=== PATIENT | female | born 1985 | race Asian ===

== ENCOUNTER 2018-07-29 08:43 | Inpatient (IN) | payer BC ==
[~2018-07-29] VITALS: Ht 152.4 cm; Wt 50.9 kg
[2018-07-29 08:58] VITALS: Ht 152.4 cm; Wt 50.9 kg
--- NOTE | 2018-07-29 09:08 | TRIAGE ---
OB Triage Datetime Report Generated by CPN: 07/29/2018 09:08 Datetime: 07/29/2018 08:56 Vaginal Exam Dilatation (cms): 3.0 Effacement (%): 100 Station: -1 Exam By: EMILEE AVINA Vaginal Bleeding: Normal Show Cervix, Consistency: Soft Cervix, Position: Midposition Presentation 'A': Cephalic Datetime: 07/29/2018 08:50 Assessment Type: Triage Maternal Assessment Level of Consciousness: Fully Conscious DTR's/Clonus: DTRs 2+; No Clonus Headache: Denies Blurred Vision: No Respiratory Effort: Unlabored; Regular Rhythm; Equal Expansion Breath Sounds, Left: Clear and Equal Breath Sounds, Right: Clear and Equal Nausea/Vomiting: Denies RUQ Epigastric Pain: Denies Lower Extremities Edema: None Degree: None Upper Extremities Edema: None Degree: None Facial Edema: None Fall Risk Assessment History of Falling: (0) No Secondary Diagnosis: (0) No Ambulatory Aid: (0) Bedrest/Nurse Assist IV Therapy: (0) No Gait: (0) Normal/Bedrest/Immobile Mental Status: (0) Oriented to Own Ability Fall Score: 0 Fall Risk Score Definition: No Risk: No action required Datetime: 07/29/2018 08:46 EGA: 37.5 Datetime: 07/29/2018 08:38 Time of Arrival: 07/29/2018 08:38 Arrived By: Ambulatory Arrived From: Home Chief Complaint: R/O LABOR Movement: Present Contractions: Regular Rupture of Membranes: Denies Vaginal Bleeding: Normal Show Vaginal Discharge: Denies Recent Sexual Intercouse: Denies Abdominal Trauma: Not Applicable Patient Complaints: Contractions Additional Patient Complaints: NONE Time Provider Notified: 07/29/2018 09:00 Provider Notified: NAVEEN Initial Plan: MONITOR AND VE
[2018-07-29] MEDS ORDERED: CARBOPROST 250 MCG INJ IM PRN ×2 (09:30→14:30)
[2018-07-29] MEDS ORDERED: OXYTOCIN 30 UNITS/LR 500 ML IV PRN ×2 (09:30→14:30)
[2018-07-29] MEDS ORDERED: OXYTOCIN 30 UNITS/LR 500 ML IV SCH ×2 (09:30)
[2018-07-29] MEDS ORDERED: MISOPROSTOL 200 MCG TAB PR PRN ×2 (09:30→14:30)
[2018-07-29] MEDS ORDERED: LIDOCAINE 1% (MPF) 30 ML INJ INJ PRN (09:30)
[2018-07-29] MEDS ORDERED: BUTORPHANOL 2 MG INJ IV PRN (09:30)
[2018-07-29] MEDS ORDERED: METHYLERGONOVINE 0.2 MG INJ IM PRN ×2 (09:30→14:30)
[2018-07-29] MEDS ORDERED: AMPICILLIN 2 GM/NS (PMX) 100 ML IVPB ONE (10:00)
[2018-07-29] MEDS: LACTATED RINGER'S 1,000 ML IV SCH ×2 (10:45→13:03)
--- NOTE | 2018-07-29 12:56 | PREAC ---
Date/Time of Note Date/Time of Note DATE: 07/29/18 TIME: 12:55 Anesthesia Eval and Record Evaluation Time Pre-Procedure Interview DATE: 07/29/18 TIME: 12:55 Age 33 Sex female NPO: 8 hrs Preoperative diagnosis intrauterine Planned procedure labor epidural Past Medical History Past Medical History: Includes : : (2), Para: (1), Gestational age: (37.5) Surgery & Anesthesia Issues No known issue Meds Anticoagulation: No Beta Janel within 24 hr: No Reason Beta Janel not given: Pt. not on B-Janel Current Medications Lactated Ringer's 1,000 ml @ 125 mls/hr Q8H IV Last administered on 07/29/18at 10:45; Admin Dose 125 MLS/HR; Start 07/29/18 at 09:09 Butorphanol Tartrate (Stadol) 2 mg Q2H PRN IV .PAIN; Start 07/29/18 at 09:30 Lidocaine (Xylocaine 1% (Mpf)) 30 ml ONCE PRN INJ .EPISIOTOMY; Start 07/29/18 at 09:30 Oxytocin/Lactated Ringer's 500 ml @ 500 mls/hr ONCE POST IV ; Start 07/29/18 at 09:30 Oxytocin/Lactated Ringer's 500 ml @ 125 mls/hr POST IV ; Start 07/29/18 at 09:30 Oxytocin/Lactated Ringer's 500 ml @ 0 mls/hr ONCE PRN IV .VAGINAL BLEEDING; Start 07/29/18 at 09:30 Methylergonovine Maleate (Methergine) 0.2 mg ONCE PRN IM .VAGINAL BLEEDING; Start 07/29/18 at 09:30 Carboprost Tromethamine (Hemabate) 250 mcg ONCE PRN IM .VAGINAL BLEEDING; Start 07/29/18 at 09:30 Misoprostol (Cytotec) 1,000 mcg ONCE PRN RI .VAGINAL BLEEDING; Start 07/29/18 at 09:30 Ampicillin 50 ml @ 100 mls/hr Q4 IVPB ; Start 07/29/18 at 13:00 Meds reviewed: Yes Allergies Coded Allergies: ciprofloxacin (Verified Allergy, Unknown, 07/29/18) rash Uncoded Allergies: all (Allergy, Unknown, 07/29/18) cipro Allergies Reviewed: Yes Labs/Studies Labs Reviewed: Reviewed by anesthesiologist Result Diagram: 4/29/19 0900 Laboratory Tests 07/29/18 09:00 Blood Bank Test 07/29/18 09:42 Antibody Screen NEGATIVE Blood Type O POSITIVE Rh Immune Globulin Candidate NO test: N/A Pre-procedure Exam Airway: Adequate mouth opening, Adequate thyromental dist Mallampati: Mallampati II Teeth: Normal Lung: Normal Heart: Normal ASA Physical Status ASA physical status: 2 Emergency: None Planned Anesthetic Neuraxial: Epidural Planned Pain Management Epidural, Parenteral pain med Pre-operative Attestations Prior to commencing anesthesia and surgery, the patient was re-evaluated, there was verification of: *The patient's identity *The results of appropriate recent lab work and preoperative vital signs *The above evaluation not changing prior to induction *Anesthetic plan, risk benefits, alternative and complications discussed with patient/family; questions answered; patient/family understands, accepts and wishes to proceed. ARELY REICH MD Jul 29, 2018 12:56
[2018-07-29] MEDS ORDERED: ROPIVACAINE 0.2% 100 ML ONE (12:59)
[2018-07-29] MEDS ORDERED: AMPICILLIN 1 GM/NS (PMX) 50 ML IVPB SCH (13:00)
[2018-07-29] MEDS ORDERED: NALOXONE (0.4 MG/ML) INJ IV PRN (13:00)
[2018-07-29] MEDS ORDERED: ONDANSETRON 4 MG INJ IV PRN (13:00)
[2018-07-29] MEDS ORDERED: ROPIVACAINE 0.2% 100ML BAG EPI SCH (13:00)
[2018-07-29] MEDS ORDERED: DIPHENHYDRAMINE 50 MG INJ IV PRN (13:00)
--- NOTE | 2018-07-29 13:37 | PAC ---
Date/Time of Note Date/Time of Note DATE: 07/29/18 TIME: 13:36 Post-Anesthesia Notes Post-Anesthesia Note Activity: WNL Respiratory function: WNL Cardiovascular function: WNL Mental status: Baseline Pain reasonably controlled: Yes Hydration appropriate: Yes Nausea/Vomiting absent: Yes Comments BP: 124/83 HR: 85 RR: 15 T: 98 SaO2: 98% ARELY REICH MD Jul 29, 2018 13:37
--- NOTE | 2018-07-29 14:15 | HP ---
Date/Time of Note Date/Time of Note DATE: 07/29/18 TIME: 14:14 OB - History Hx of Present Free Text/Dictation 33 years olkd P1001 at 38 weeks in labor Chief Complaint: as above Last Menstrual Period: Jul 29, 2018 (11/07/2017) Estimated Due Date: August 14, 2018 : 2 Para: 1 Care: Good Care Ultrasounds: Normal mid trimester US Past Family/Social History * Past Medical, Surgical, Family and Obstetric Histories reviewed from chart. OB Admission Exam Last 72 hours Lab Results CBC & BMP 07/29/18 09:00 SISI HODGE M.D. Jul 29, 2018 14:15
--- NOTE | 2018-07-29 14:18 | LDN ---
Date/Time of Note Date/Time of Note DATE: 07/29/18 TIME: 14:16 Delivery Summary pt fully dilated pushed to deliver a viable baby girl 8/9. NOse and mouth were suctioned cord clamped and cut. Infant handed to patient. cord blood collected. Placenta delivered spontaneously. No LAC EBL 200 cc Weeks of Gestation 38 Placenta Delivered: Spontaneously Meconium: none Episiotomy: No (Please specify) Anesthesia type: Epidural Estimated blood loss: 200 Sponge & Needle done & correct: Yes SISI HODGE M.D. Jul 29, 2018 14:17
[2018-07-29] MEDS ORDERED: HYDROCODONE/APAP (5/325) TAB PO PRN ×2 (14:30)
[2018-07-29] MEDS ORDERED: NACL 0.9% 3 ML SYG IV SCH (14:30)
[2018-07-29 17:30] VITALS: BP 128/76; PULSE 97; RESP 20
[2018-07-29] MEDS: IBUPROFEN 600 MG TAB PO SCH ×2 (18:00→23:33)
[2018-07-29 18:40] VITALS: BP 125/69; PULSE 125; RESP 18
[2018-07-29] MEDS: OXYTOCIN 30 UNITS/LR 500 ML IV SCH ×2 (19:31→21:25)
[2018-07-29 20:20] VITALS: BP 121/59; PULSE 98; RESP 18
[2018-07-30] MEDS: LACTATED RINGER'S 1,000 ML IV SCH ×3 (01:09→17:09)
[2018-07-30 03:40] VITALS: BP 100/47; PULSE 83; RESP 20
[2018-07-30] MEDS: IBUPROFEN 600 MG TAB PO SCH ×3 (05:43→18:00)
[2018-07-30 08:30] VITALS: BP 111/79; PULSE 87; RESP 18
--- NOTE | 2018-07-30 11:58 | DS ---
Date/Time of Note Date/Time of Note DATE: 07/30/18 TIME: 11:57 Discharge Summary Admission/Discharge Info Admit Date/Time Jul 29, 2018 at 09:08 Discharge Date/Time 07/30/2018 Discharge Diagnosis Patient Condition: Good Procedures Hx of Present Illness Hospital Course 07/29/18 admitted day prior in labor Follow-up Plan 6 weeks Primary Care Provider Not On Staff Doctor Pending Labs Laboratory Tests Test 07/30/18 07:02 Lab Scanned Report REFERENCE LAB [id number] SISI HODGE M.D. Jul 30, 2018 11:58
--- NOTE | 2018-07-30 12:00 | QN ---
Documentation Comment PPD # 1 pt is feeling well noconcerns mild lochia VSS CBC stable Plan d/c home today RTC 6 weeks SISI HODGE M.D. Jul 30, 2018 12:00
[2018-07-30 15:11] VITALS: BP 109/63; PULSE 84; RESP 18
[2018-07-30 20:00] VITALS: BP 111/77; PULSE 76; RESP 20
[2018-07-31] MEDS: LACTATED RINGER'S 1,000 ML IV SCH (01:09)
[2018-07-31 05:06] VITALS: BP 110/64; PULSE 78; RESP 20
[2018-07-31] MEDS: IBUPROFEN 600 MG TAB PO SCH ×2 (06:00)
[2018-07-31 07:30] VITALS: BP 116/68; PULSE 78; RESP 18
--- NOTE | 2018-08-01 11:50 | DELSUM ---
Delivery Summary A-C Datetime Report Generated by CPN: 08/01/2018 11:50 DELIVERY PERSONNEL Card Checker: Christos, Annelise MATERNAL INFORMATION Delivery Anesthesia: Epidural Medications in Delivery: OXYTOCIN 30 MU IN 500 ML OF LR Delivery QBL (ml): 200 Placenta Cultured: No Maternal Complications: None LABOR SUMMARY EDC: 08/14/2018 00:00 No. Babies in Womb: 1 Attempted: No Labor Anesthesia: Epidural LABOR INFORMATION Reason for Induction: Not Applicable Onset of Labor: 07/29/2018 02:00 Complete Dilatation: 07/29/2018 13:38 Oxytocin: N/A Group B Beta Strep: Positive Antibiotics # of Doses: 2 Antibiotics Time of Last Dose: 07/29/2018 13:46 Steroids Given: None Reason Steroids Not Administered: Not Applicable MEMBRANES Membranes Rupture Method: Artificial Rupture of Membranes: 07/29/2018 14:02 Length of Rupture (hr): 0.08 Amniotic Fluid Color: Clear Amniotic Fluid Amount: Small Amniotic Fluid Odor: None STAGES OF LABOR Stage 1 hr: 11 Stage 1 min: 38 Stage 2 hr: 0 Stage 2 min: 29 Stage 3 hr: 0 Stage 3 min: 3 Total Time in Labor hr: 12 Total Time in Labor min: 10 VAGINAL DELIVERY Episiotomy: None Laceration Extension: N/A Laceration Type: None Laceration Repair: Not Applicable Initial Vag Sponge Count: 10 Final Vag Sponge Count: 10 Initial Vag Sharps Count: 1 Final Vag Sharps Count: 1 Sponge Count Correct: No Sharps Count Correct: Yes BABY A INFORMATION Infant Delivery Date/Time: 07/29/2018 14:07 Method of Delivery: Vaginal Born in Route : No : N/A Forceps: N/A Vacuum Extraction: N/A Shoulder Dystocia : N/A SHOULDER DYSTOCIA BABY A Delivery Date/Time: 07/29/2018 14:07 PRESENTATION/POSITION BABY A Presentation: Cephalic Cephalic Presentation: Vertex Vertex Position: Left Occipital Anterior Breech Presentation: N/A PLACENTA INFORMATION BABY A Placenta Delivery Time : 07/29/2018 14:10 Placenta Method of Delivery: Spontaneous Placenta Status: Delivered SCORES BABY A Heart Rate 1 min: >100 bpm Resp Effort 1 min: Good Cry Reflex Irritability 1 min: Cough/Sneeze/Pulls Away Muscle Tone 1 min: Active Motion Color 1 min: Body Casa, Extremit Blue SCORE 1 MIN: 9 Heart Rate 5 min: >100 bpm Resp Effort 5 min: Good Cry Reflex Irritability 5 min: Cough/Sneeze/Pulls Away Muscle Tone 5 min: Active Motion Color 5 min: Body Casa, Extremit Blue SCORE 5 MIN: 9 INFORMATION BABY A Gestational Age at Delivery: 37.5 Gestational Status: Early Term- 37- 38.6 Weeks Infant Outcome : Liveborn Condition : Stable Infant Sex: Female IDENTIFICATION/MEDS BABY A ID Band Number: [id number] ID Band Location: Right Leg; Left Arm Sensor Applied: Yes Sensor Number: [id number] Sensor Location : Cord Clamp Vitamin K Given : Not Given Erythromycin Given: Not Given WEIGHT/LENGTH BABY A Infant Birthweight (gm): 2540 Weight (lb): 5 Weight (oz): 10 Infant Length (in): 18.00 Infant Length (cm): 45.72 CORD INFORMATION BABY A No. Cord Vessels: 3 Nuchal Cord : N/A Cord Blood Taken: No Suction: Mouth; Nose ASSESSMENT BABY A Infant Complications: None Physical Findings at Delivery: Within Normal Limits Infant Respirations: Appears Normal Epic Ambulatory Specialists/ALS Called : No Care By: Sandra FUNK Transferred To: Remains with Mother
== END 2018-07-31 11:50 | disposition home or self-care (01) | DRG 807 ==
LOC: OBT 08:43 → L-D 08:43 → OBT 09:02 → L-D 09:08 → PP1 17:48
PROVIDERS: ADMIT Obstetrics & Gynecology; ATTEND Obstetrics & Gynecology
PROC: 10E0XZZ Delivery of Products of Conception, External Approach (ICD-10-PCS; principal; 2018-07-29)
DX: O80 Encounter for full-term uncomplicated delivery (principal); Z37.0 Single live birth; Z3A.38 38 weeks gestation of pregnancy
CPT/HCPCS: 62322; 85025; 85610; 85730; 86592; 86850; 86900; 86901; 87340; G0463; J0290; J2590; J2795; J7120